=== PATIENT | female | born 1945 | race African-American/Black ===

== ENCOUNTER 2016-12-29 18:51 | Emergency (ER) | payer OTHER ==
[~2016-12-29] VITALS: Ht 167.6 cm; Wt 95.3 kg
[~2016-12-29 18:51] MED LIST: ADULT LOW DOSE81 MG PO; APAP500 PO; ASA5UEC; CADUET 2.5 MG-1 EACH PO; CADUET 5 MG-201 EACH PO; CELEBREX 200 M200 MG PO; CENTRUM SILVER1 EAC1 PO; CIPROFLOXACIN500 M3 PO; COMPAZINE10 MG PO; DARVOCET-N 1001 EACH PO; FLAGYL500 MG PO; FLEXERIL PO; HYDROCODONE-AP1 EAC6 PO; KAPIDEX60 MG PO; LORTAB 5 MG/5001 TAB PO; NORCO 5-325 TA1 EACH PO; PROTONIX40 M2 PO; SYNTHROID150 MCG PO; ZOFRAN4 MG PO
[2016-12-29] MEDS ORDERED: HYZAAR 100-12.1 EACH PO (19:05)
[2016-12-29] MEDS ORDERED: CELEBREX 200 M200 M1 PO (19:05)
[2016-12-29] MEDS ORDERED: VITAMIN D2000 UNIT PO (19:06)
[2016-12-29] MEDS ORDERED: DEXILANT60 MG PO (19:06)
[2016-12-29] MEDS ORDERED: TYLENOL325 MG PO (19:07)
[2016-12-29] MEDS ORDERED: TRAMADOL 50 MG50 MG PO ×2 (19:07→20:41)
[2016-12-29] MEDS ORDERED: NORFLEX100 MG PO (20:41)
[2016-12-29 20:49] VITALS: BP 128/74
== END 2016-12-29 20:50 | disposition home or self-care (01) ==
LOC: ER 18:51
DX: S16.1XXA Strain of muscle, fascia and tendon at neck level, initial encounter (principal); S29.012A Strain of muscle and tendon of back wall of thorax, initial encounter; R07.89 Other chest pain; I10 Essential (primary) hypertension; K21.9 Gastro-esophageal reflux disease without esophagitis; Z88.5 Allergy status to narcotic agent; V49.50XA Passenger injured in collision with unspecified motor vehicles in traffic accident, initial encounter; Y93.I9 Activity, other involving external motion; Y92.488 Other paved roadways as the place of occurrence of the external cause; Y99.9 Unspecified external cause status

== ENCOUNTER → 2017-06-07 | Outpatient (CLI) | payer OTHER ==
[~2017-06-07] MED LIST changes: +CELEBREX 200 M200 M1 PO; +DEXILANT60 MG PO; +HYZAAR 100-12.1 EACH PO; +NORFLEX100 MG PO; +TRAMADOL 50 MG50 MG PO; +TYLENOL325 MG PO; +VITAMIN D2000 UNIT PO
== END ==
LOC: RAD 13:34
DX: Z12.31 Encounter for screening mammogram for malignant neoplasm of breast (principal)

== ENCOUNTER → 2018-06-13 | Outpatient (CLI) | payer OTHER | LOC: RAD 14:43 | DX: Z12.31 Encounter for screening mammogram for malignant neoplasm of breast (principal) ==

== ENCOUNTER 2019-05-20 22:36 | Emergency (ER) | payer OTHER ==
[~2019-05-20] VITALS: Ht 170.2 cm; Wt 96.2 kg
[2019-05-20 23:20] LABS: ABSOLUTE NEUTROPHILS 9.5 thou/uL (1.4-8.2); BASOPHILS 0.4 % (0.0-2.0); EOSINOPHILS 1.4 % (0.0-3.0); HEMATOCRIT 42.9 % (37.0-47.0); HEMOGLOBIN 14.2 gm/dL (12.0-15.0); LYMPHOCYTES 11.1 % (24.0-44.0); MCH 30.7 pg (26.0-34.0); MCHC 33.2 g/dL (28.0-37.0); MCV 92.6 fL (80.0-100.0); MONOCYTES 2.5 % (1.0-8.0); PLATELET COUNT 252 thou/uL (150-400); POLYS 84.6 % (36.0-66.0); RBC 4.63 mil/uL (4.20-5.00); RDW 13.4 % (10.5-14.5); WBC 11.3 thou/uL (4.0-11.0)
[2019-05-20 23:23] LABS: ANION GAP 11 mmol/L (7-16); BUN 14 mg/dL (7-18); CALCIUM 8.9 mg/dL (8.5-10.1); CHLORIDE 102 mmol/L (98-107); CO2 27 mmol/L (21-32); GLUCOSE 108 mg/dL (74-106); POTASSIUM 3.6 mmol/L (3.5-5.1); SODIUM 140 mmol/L (136-145)
[2019-05-20 23:45] LABS: ALBUMIN 3.2 g/dL (3.4-5.0); LIPASE 67 U/L (73-393); SGOT 12 U/L (15-37); SGPT 15 U/L (30-65); TOTAL BILIRUBIN 0.4 mg/dL (<0.1-1.0); TOTAL PROTEIN 7.6 g/dL (6.4-8.2); TROPONIN-I <0.06 ng/mL (<0.06)
[2019-05-21] MEDS ORDERED: AUGMENTIN 875-1 EACH PO (01:12)
[2019-05-21] MEDS ORDERED: TRAMADOL 50 MG50 MG PO (01:13)
[2019-05-21 01:31] LABS: URINE BILIRUBIN NEGATIVE (Negative); URINE BLOOD 2+ (Negative); URINE CLARITY CLOUDY; URINE COLOR YELLOW; URINE GLUCOSE-RANDOM* NEGATIVE (Negative); URINE KETONES NEGATIVE (Negative); URINE NITRITE-REFLEX NEGATIVE (Negative); URINE PROTEIN (DIPSTICK) 1+ (Negative); URINE UROBILINOGEN 0.2 E.U./dl (0.2-1.0)
[2019-05-21 01:36] LABS: URINE LEUKOCYTES-REFLEX 2+ (Negative)
[2019-05-21 01:50] LABS: SQUAMOUS 0-3 Few /LPF (0-3); WBC CLUMPS Moderate (None Seen)
[2019-05-21 01:51] LABS: CASTS None Seen /LPF (None Seen); CRYSTALS None Seen /LPF (None Seen); MUCUS 0-3 Light strn/LPF (None Seen); URINE RBC 3-10 Few /HPF (0-2)
[2019-05-21 01:58] VITALS: BP 160/79
--- NOTE | 2019-05-22 15:06 | EKG ---
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[id number] Requested By: Sang Ingram Order Number: [id number] MD: Gustavo James Measurements Intervals [place] Rate: 89 P: 30 CT: 167 QRS: -87 QRSD: 100 T: 39 QT: 354 QTc: 431 Interpretive Statements Sinus rhythm Left anterior fascicular block Abnormal Q wave in V1 Compared to ECG 03/02/2010 00:42:04 Sinus arrhythmia no longer present T-wave abnormality no longer present Possible ischemia no longer present Electronically Signed On 05-22-2019 15:06:55 CDT by Gustavo James [email or web address] <ELECTRONICALLY SIGNED> By: Gustavo James MD 05/22/19 1506 12 Gustavo James MD /EPI
== END 2019-05-21 01:59 | disposition home or self-care (01) ==
LOC: ER 22:36
PROVIDERS: Emergency Medicine
DX: N12 Tubulo-interstitial nephritis, not specified as acute or chronic (principal); I10 Essential (primary) hypertension; E03.9 Hypothyroidism, unspecified; K21.9 Gastro-esophageal reflux disease without esophagitis; Z96.643 Presence of artificial hip joint, bilateral; Z88.5 Allergy status to narcotic agent; Z87.891 Personal history of nicotine dependence

== ENCOUNTER → 2019-06-19 | Outpatient (CLI) | payer OTHER ==
[~2019-06-19] MED LIST changes: +AUGMENTIN 875-1 EACH PO
== END ==
LOC: RAD 13:57
DX: Z12.31 Encounter for screening mammogram for malignant neoplasm of breast (principal)

== ENCOUNTER → 2020-06-16 | Outpatient (CLI) | payer OTHER | LOC: RAD 14:51 | PROVIDERS: ATTEND Internal Medicine | DX: Z12.31 Encounter for screening mammogram for malignant neoplasm of breast (principal) ==

== ENCOUNTER 2020-08-18 11:59 | Emergency (ER) | payer OTHER ==
[~2020-08-18] VITALS: Ht 170.2 cm; Wt 92.1 kg
[2020-08-18 14:04] LABS: URINE BILIRUBIN NEGATIVE (Negative); URINE BLOOD 2+ (Negative); URINE CLARITY CLEAR; URINE COLOR YELLOW; URINE GLUCOSE-RANDOM* NEGATIVE (Negative); URINE KETONES NEGATIVE (Negative); URINE LEUKOCYTES-REFLEX NEGATIVE (Negative); URINE NITRITE-REFLEX NEGATIVE (Negative); URINE PROTEIN (DIPSTICK) TRACE (Negative); URINE SPECIFIC GRAVITY 1.025 (1.005-1.035); URINE UROBILINOGEN 0.2 E.U./dl (0.2-1.0)
[2020-08-18 14:16] LABS: ABSOLUTE NEUTROPHILS 6.5 thou/uL (1.4-8.2); BASOPHILS 0.3 % (0.0-2.0); HEMATOCRIT 41.7 % (37.0-47.0); HEMOGLOBIN 13.8 gm/dL (12.0-15.0); LYMPHOCYTES 7.7 % (24.0-44.0); MCH 30.6 pg (26.0-34.0); MCV 92.7 fL (80.0-100.0); MONOCYTES 4.5 % (1.0-8.0); PLATELET COUNT 223 thou/uL (150-400); POLYS 87.5 % (36.0-66.0); RDW 13.3 % (10.5-14.5); WBC 7.4 thou/uL (4.0-11.0)
[2020-08-18 14:19] LABS: SQUAMOUS 0-3 Few /LPF (0-3); URINE RBC 3-10 Few /HPF (0-2); URINE WBC-REFLEX 0-5 Rare /HPF (0-5)
[2020-08-18 14:20] LABS: BACTERIA-REFLEX 1-9 Few /HPF (None Seen); CASTS None Seen /LPF (None Seen); CRYSTALS None Seen /LPF (None Seen)
[2020-08-18 14:23] LABS: CALCIUM 9.6 mg/dL (8.5-10.1); CREATININE 0.9 mg/dL (0.6-1.0); POTASSIUM 3.8 mmol/L (3.5-5.1)
[2020-08-18 14:29] LABS: ALBUMIN 3.5 g/dL (3.4-5.0); TOTAL BILIRUBIN 0.6 mg/dL (0.2-1.0); TOTAL PROTEIN 7.5 g/dL (6.4-8.2)
[2020-08-18] MEDS ORDERED: CIPROFLOXACIN500 M1 PO (16:39)
[2020-08-18] MEDS ORDERED: ULTRAM 50MG TAB50 MG PO (16:39)
[2020-08-18] MEDS ORDERED: FLAGYL500 M1 PO (16:39)
[2020-08-18] MEDS ORDERED: ZOFRAN ODT4 MG PO (16:39)
[2020-08-18 17:02] VITALS: BP 148/78
== END 2020-08-18 17:04 | disposition home or self-care (01) ==
LOC: ER 11:59
PROVIDERS: Emergency Medicine
DX: K52.9 Noninfective gastroenteritis and colitis, unspecified (principal); R11.2 Nausea with vomiting, unspecified; I10 Essential (primary) hypertension; Z96.643 Presence of artificial hip joint, bilateral; Z79.899 Other long term (current) drug therapy; Z79.82 Long term (current) use of aspirin; Z88.5 Allergy status to narcotic agent; Z87.891 Personal history of nicotine dependence

== ENCOUNTER → 2021-07-17 | Outpatient (CLI) | payer OTHER ==
[~2021-07-17] MED LIST changes: +CIPROFLOXACIN500 M1 PO; +FLAGYL500 M1 PO; +ULTRAM 50MG TAB50 MG PO; +ZOFRAN ODT4 MG PO
== END ==
LOC: BC 13:18
PROVIDERS: ATTEND Internal Medicine
DX: Z12.31 Encounter for screening mammogram for malignant neoplasm of breast (principal); N64.89 Other specified disorders of breast